=== PATIENT | female | born 1940 | race Caucasian/White ===

== ENCOUNTER 2023-03-13 15:23 | Emergency (ER) | payer OTHER, BC ==
[2023-03-13 15:42] VITALS: BP 133/68; PULSE 74; RESP 18; TEMP 98.5; BMI 22.6
[2023-03-13] MEDS ORDERED: ACETAMINOPHEN 325 MG TABLET (FP) PO ONE (16:05)
[2023-03-13] MEDS ORDERED: KETOROLAC TROMETHAMINE 30 MG/1 ML VIAL IM ONE (16:05)
[2023-03-13] MEDS ORDERED: ACETAMINOPHEN 500 MG TABLET (FP) ONE (16:14)
[2023-03-13] MEDS ORDERED: KETOROLAC TROMETHAMINE 30 MG/1 ML VIAL ONE (16:14)
== END 2023-03-13 18:56 | disposition home or self-care (01) ==
LOC: FER 15:23
PROC: 3E0233Z Introduction of Anti-inflammatory into Muscle, Percutaneous Approach (ICD-10-PCS; principal; 2023-03-13)
DX: R10.9 Unspecified abdominal pain (principal); M25.552 Pain in left hip
CPT/HCPCS: 72192-TC; 73700-TC-RT; 99284-25